=== PATIENT | male | born 1960 | race Caucasian/White ===

== ENCOUNTER 2020-06-23 11:02 | Emergency (ER) | payer SELFPAY ==
[2020-06-23 11:14] VITALS: BP 125/95
--- NOTE | 2020-06-23 11:29 | ER Document Report ---
HPI - HPI Patient complains to provider of: Medication refill Time Seen by Provider: 06/23/20 11:11 Onset: This morning Onset/Duration: Gradual Severity: None Pain Level: Denies Context: Patient states that [place] from [place] and his vehicle broke down. Patient states he called a dealership in his vehicle would not be able to get into the shop until next week. Patient is out of his medications that he takes due to have a history of CAD and previous CVA. Patient also has stents placed. Patient denies any complaints or problems and is only here for medication refill. Associated Symptoms: None Exacerbated by: Denies Relieved by: Denies Similar symptoms previously: No Recently seen / treated by doctor: No - ROS ROS below otherwise negative: Yes Systems Reviewed and Negative: Yes All other systems reviewed and negative - NEURO Neurology: DENIES: Headache - RESPIRATORY Respiratory: DENIES: Trouble Breathing, Coughing - GASTROINTESTINAL Gastrointestinal: DENIES: Nausea, Patient vomiting - DERM Skin Color: Normal Skin Problems: None Past Medical History - General Information source: Patient - Social History Smoking Status: Current Every Day Smoker Frequency of alcohol use: None Drug Abuse: None Lives with: Family Family History: Reviewed & Not Pertinent - Past Medical History Cardiac Medical History: Reports: Hx Coronary Artery Disease, Hx Hypercholesterolemia Neurological Medical History: Reports: Hx Cerebrovascular Accident Past Surgical History: Reports: Hx Cardiac Surgery Vertical Provider Document - CONSTITUTIONAL Agree With Documented VS: Yes Exam Limitations: No Limitations General Appearance: WD/WN, No Apparent Distress - HEENT HEENT: Atraumatic, Normocephalic - NECK Neck: Normal Inspection, Supple - RESPIRATORY Respiratory: Breath Sounds Normal, No Respiratory Distress - CARDIOVASCULAR Cardiovascular: Regular Rate, Regular Rhythm - MUSCULOSKELETAL/EXTREMETIES Musculoskeletal/Extremeties: MAEW - NEURO Level of Consciousness: Awake, Alert, Appropriate Motor/Sensory: No Motor Deficit - DERM Integumentary: Warm, Dry, No Rash Course - Re-evaluation Re-evalutation: 06/23/20 11:34 Patient provided with a one-month supply of medications as he reports vehicle trouble and cannot even get his vehicle to the shop until later in the week. Patient is uncertain how long it may take before he can actually get back home therefore a 1 month supply will be written for his prescriptions. Patient encouraged to contact his primary doctor for any additional refill needs. - Vital Signs Vital signs: Temp Pulse Resp BP Pulse Ox 98.0 F 84 20 125/95 H 98 06/23/20 11:11 06/23/20 11:11 06/23/20 11:11 06/23/20 11:11 06/23/20 11:11 Discharge - Discharge Clinical Impression: Medication refill, Hx of coronary artery disease Condition: Stable Disposition: HOME, SELF-CARE Additional Instructions: Return immediately for any new or worsening symptoms Followup with your primary care provider, call tomorrow to make a followup appointment Prescriptions: Atorvastatin Calcium [Lipitor] 80 mg PO QHS #30 tablet Spironolactone [Aldactone 25 mg Tablet] 25 mg PO DAILY #30 tablet Bupropion HCl [Bupropion Xl] 300 mg PO DAILY #60 tab.er.24h Carvedilol [Coreg 6.25 mg Tablet] 6.25 mg PO Q12 #60 tablet Apixaban [Eliquis 5 mg Tablet] 5 mg PO BID #60 tablet Sacubitril/Valsartan [Entresto 24 mg/26 mg Tablet] 1 tab PO BID #60 tablet Quetiapine Fumarate [Seroquel] 50 mg PO Q12 #30 tablet Ref[facility]: [facility] [Provider Group] - Follow up as needed
== END 2020-06-23 11:35 | disposition home or self-care (01) ==
LOC: ER 11:02
DX: Z76.0 Encounter for issue of repeat prescription (principal); I25.10 Atherosclerotic heart disease of native coronary artery without angina pectoris; Z86.73 Personal history of transient ischemic attack (TIA), and cerebral infarction without residual deficits; F17.200 Nicotine dependence, unspecified, uncomplicated
CPT/HCPCS: 99283